=== PATIENT | male | born 1930 | race Caucasian/White ===

== ENCOUNTER → 2016-11-29 | Outpatient (CLI) | payer OTHER ==
[~2016-11-29] VITALS: Ht 177.8 cm; Wt 78.0 kg
[~2016-11-29] MED LIST: ACETAMINOPHEN-1 EAC1 PO; ALLOPURINOL 30300 M2 PO; ALTACE10 MG PO; ASPIR 8181 M1 PO; FOLIC ACID 40400 MCG PO; GLUCOSAMINE CH1 EAC2 PO; IRON325 PO; KEFLEX500 MG PO; MOBIC15 MG PO; PROTONIX40 M1 PO; TRAMADOL 50 MG50 MG PO; VITAMIN B122500 MCG PO
--- NOTE | ~2016-11-29 | P ---
[facility] [place] [address] PROCEDURE REPORT Name: TAYLOR ROSE Room #: REG CHINEDU Jarvis#: [id number] Admission: 11/29/16 Attend Phys: Gaston Nickerson Discharge: Date of : [birth year] Report #: [id number] THIS REPORT FOR: //name// CC: Gaston Justin DO DATE OF SERVICE: 11/29/2016 PROCEDURE PERFORMED: Flexible sigmoidoscopy. HISTORY OF PRESENT ILLNESS: The patient is an 86-year-old male with a previous history of GI bleed in February 2015, was hospitalized, bleeding scans at that time were negative, endoscopy showed diverticulosis. The patient has had a previous history of prostate cancer and radiation therapy. Upper endoscopy at that time showed a hiatal hernia and a small erosion. He denies any obvious bright red blood per rectum or melena at this time. He does complain of generalized fatigue. Lab from 11/06/2016, showed a hemoglobin of 12.4, ferritin level was 200, iron level was 56, which was low. Plan is for flexible sigmoidoscopy today. PROCEDURE: The risks and benefits of the procedure were explained to the patient, those risks including, but not limited to bleeding, perforation, and the risk of sedation. He understood these risks and gave informed consent. Sedation was given using propofol per anesthesia. Next, a digital rectal exam was initially performed, which was normal. Next, using a standard QikServeinon colonoscope, the scope was placed in the patient's anus and advanced under direct vision into the descending colon, at which point a large amount of stool was identified. There was no evidence of bleeding throughout the exam today. The prep was fair in most areas. Multiple washings and aspirations were performed. Multiple diverticula were noted in the sigmoid colon, no evidence of bleeding. The rectal mucosa was normal. There was no evidence of radiation proctitis. On retroflexion, small nonbleeding internal hemorrhoids were noted. The scope was then withdrawn and the procedure terminated. The patient tolerated the procedure well. IMPRESSION: 1. Sigmoid diverticulosis. 2. Internal hemorrhoids. 3. Otherwise, normal flexible sigmoidoscopy. No evidence of bleeding. RECOMMENDATIONS: We will repeat CBC today and monitor hemoglobin. If the patient's hemoglobin is trending down, may consider Hemoccult testing of stools. [address] [address] PROCEDURE REPORT Name: TAYLOR ROSE Room #: REG CHINEDU Jarvis#: [id number] Admission: 11/29/16 Attend Phys: Gaston Nickerson Discharge: Date of : 05/[birth year] Report #: [id number] Thank you for allowing me to participate in his care. By: 0924 0939 Gaston Milton MD /nt
[2016-11-29 10:06] LABS: HEMATOCRIT 37.7 % (42.0-52.0); HEMOGLOBIN 12.4 gm/dL (14.0-18.0); MCHC 32.9 g/dL (28.0-37.0); MCV 94.3 fL (80.0-100.0); RDW 15.3 % (10.5-14.5); WBC 6.1 thou/uL (4.0-11.0)
== END | disposition home or self-care (01) ==
LOC: GI 11-22 08:36
PROVIDERS: Specialist
DX: K57.30 Diverticulosis of large intestine without perforation or abscess without bleeding (principal); K64.8 Other hemorrhoids; Z87.891 Personal history of nicotine dependence; D64.9 Anemia, unspecified; I10 Essential (primary) hypertension; Z85.46 Personal history of malignant neoplasm of prostate
CPT/HCPCS: 62110

== ENCOUNTER → 2017-02-18 | Outpatient (CLI) | payer OTHER ==
[~2017-02-18] MED LIST changes: +AUGMENTIN 875-1 EACH PO; +DOXYCYCLINE 10100 MG PO; +FOSAMAX 70 MG T70 MG PO; +LEVAQUIN 750 M750 MG PO; +MUCINEX DM ER1 EAC1 PO; +OXYBUTYNIN 5 MG5 M2 PO; +PANTOPRAZOLE SO40 M1 PO; +PREDNISONE 20 M20 M1 PO; +TURMERIC500 M2 PO; +VENTOLIN HFA 1818 GM INH
== END ==
LOC: CAT 08:37
DX: K57.30 Diverticulosis of large intestine without perforation or abscess without bleeding (principal); D73.89 Other diseases of spleen; J98.4 Other disorders of lung; I70.0 Atherosclerosis of aorta; M25.78 Osteophyte, vertebrae; M47.896 Other spondylosis, lumbar region; Z98.890 Other specified postprocedural states

== ENCOUNTER 2017-02-20 23:30 | Inpatient (IN) | payer OTHER ==
[~2017-02-20] VITALS: Ht 177.8 cm; Wt 69.4 kg
--- NOTE | ~2017-02-20 | EKG ---
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 : 1930 Requested By: Rosa Elena Ware Order Number: [id number] MD: Ridge Huggins Measurements Intervals [place] Rate: 66 P: 26 WI: 144 QRS: -58 QRSD: 108 T: 81 QT: 371 QTc: 389 Interpretive Statements Sinus rhythm Ventricular bigeminy Left anterior fascicular block Nonspecific T abnrm, anterolateral leads Compared to ECG 01/26/2017 12:09:18 Ventricular premature complex(es) now present Left anterior fascicular block now present Left bundle-branch block no longer present Electronically Signed On 02-21-2017 8:12:55 INPATIENT PHARMACIST by Ridge Huggins [email or web address] <ELECTRONICALLY SIGNED> By: Ridge Huggins MD 02/21/17 0812 0003 0003 Ridge Huggins MD /EPI
--- NOTE | ~2017-02-20 | HC ---
[facility] [place] [address] CONSULTATION Name: TAYLOR ROSE Room #: 218-P [facility] IN ..#: [id number] Admission: 02/21/17 Attend Phys: Antolin Hopson MD Discharge: 02/25/17 Date of : [birth year] Report #: [id number] THIS REPORT FOR: //name// CC: Antolin Hopson DATE OF SERVICE: 02/24/2017 HISTORY OF PRESENT ILLNESS: The patient is an 86-year-old white male who was admitted with complaining weakness for the past month, complains of stiffness of his hands with generalized pain of his knees and arms. He is noted to have an anemia of 10.4. He did have elevation of his sedimentation rate. He has been diagnosed with polymyalgia rheumatica and has been started on corticosteroids with nice improvement in his symptomatology. We are seeing him in rehabilitation medicine consultation. PAST MEDICAL HISTORY: Includes prior lower GI bleed. He has had a right knee replacement, left hip replacement, diverticulitis, hypertension, gout, prostate cancer with radiation, GI bleed, iron deficiency anemia, kidney stone procedure. MEDICATIONS: Please see the full medication listing. ALLERGIES: No known drug allergies. HABITS: Former tobacco abuse, quit greater than a year ago. No history of alcohol abuse per se. REVIEW OF SYSTEMS: Did not offer any current complaints of chest pain, shortness of breath or abdominal discomfort. PHYSICAL EXAMINATION: GENERAL: An 86-year-old white male, pleasant, in no obvious distress. HEENT: Appeared to be benign. NEUROLOGIC: Cranial nerves are grossly intact. Facies are symmetric. Notes that his hands are stiff and he does have considerable degenerative changes of his hands, but he feels he is moving them better than he could. He can come to almost a full fist formation. No actual joint synovitis or erythema was noted. His lower extremities, he has the old knee incision. No focal calf swelling. Tone appeared to be intact. I would grade the strength of the lower extremities at a 4, upper extremity is probably grade 4-. Since starting the steroids, he has improved from max assist to now mod assist with sit to stand and was able to ambulate up to 300 feet with a front-wheeled walker with min assist. ASSESSMENT: An 86-year-old white male with the following problems: 1. Polymyalgia rheumatica. 2. Generalized weakness and debilitation. 3. Anemia. [address] [address] CONSULTATION Name: TAYLOR ROSE Room #: 218-P DIS IN M.R.#: [id number] Admission: 02/21/17 Attend Phys: Antolin Hopson MD Discharge: 02/25/17 Date of : [birth year] Report #: [id number] 4. Past history of gout. 5. Degenerative arthritis. PLAN: Occupational therapy is to evaluate. Physical therapy is involved as noted above. Insurance is being checked regarding rehab therapy options. We will be glad to follow along with you. <ELECTRONICALLY SIGNED> By: Salvador Cruz MD 02/28/17 1306 1143 1517 Salvador Cruz MD /[facility]
[~2017-02-20 23:30] MED LIST changes: -AUGMENTIN 875-1 EACH PO; -DOXYCYCLINE 10100 MG PO; -FOSAMAX 70 MG T70 MG PO; -LEVAQUIN 750 M750 MG PO; -MUCINEX DM ER1 EAC1 PO; -OXYBUTYNIN 5 MG5 M2 PO; -PANTOPRAZOLE SO40 M1 PO; -PREDNISONE 20 M20 M1 PO; -VENTOLIN HFA 1818 GM INH
[2017-02-20 23:38] VITALS: BP 123/44
[2017-02-21] VITALS (7 sets, daily range): BP systolic 122–144; BP diastolic 58–78
[2017-02-21 00:16] LABS: ANION GAP 7 mmol/L (7-16); BUN 16 mg/dL (7-18); CHLORIDE 98 mmol/L (98-107); CO2 27 mmol/L (21-32); CREATININE 0.9 mg/dL (0.7-1.3); GLUCOSE 129 mg/dL (74-106); POTASSIUM 4.3 mmol/L (3.5-5.1); SODIUM 132 mmol/L (136-145)
[2017-02-21 00:18] LABS: ABSOLUTE NEUTROPHILS 7.1 thou/uL (1.4-8.2); BASOPHILS 0.4 % (0.0-2.0); EOSINOPHILS 0.3 % (0.0-3.0); HEMATOCRIT 31.2 % (42.0-52.0); HEMOGLOBIN 10.4 gm/dL (14.0-18.0); LYMPHOCYTES 10.6 % (24.0-44.0); MCH 30.5 pg (26.0-34.0); MCHC 33.4 g/dL (28.0-37.0); MCV 91.1 fL (80.0-100.0); MONOCYTES 9.9 % (1.0-8.0); PLATELET COUNT 369 thou/uL (150-400); POLYS 78.8 % (36.0-66.0); RBC 3.42 mil/uL (4.50-6.00); RDW 14.7 % (10.5-14.5)
[2017-02-21 00:24] LABS: TROPONIN-I < 0.04 ng/mL (<0.06)
[2017-02-21 05:54] LABS: URINE BILIRUBIN NEGATIVE (Negative); URINE BLOOD NEGATIVE (Negative); URINE CLARITY CLEAR; URINE COLOR YELLOW; URINE GLUCOSE-RANDOM* NEGATIVE (Negative); URINE KETONES NEGATIVE (Negative); URINE LEUKOCYTES NEGATIVE (Negative); URINE NITRITE NEGATIVE (Negative); URINE PROTEIN (DIPSTICK) NEGATIVE (Negative)
[2017-02-21 06:10] LABS: ALBUMIN 2.2 g/dL (3.4-5.0); DIRECT BILIRUBIN 0.3 mg/dL (<0.1-0.3); TOTAL BILIRUBIN 0.7 mg/dL (<0.1-1.0); TOTAL PROTEIN 6.4 g/dL (6.4-8.2)
[2017-02-21 16:10] LABS: HAV IgM AB (ANTI-HAV IgM) Negative (Negative); HEPATITIS B SURFACE AG Negative (Negative); HEPATITIS C VIRUS AB <0.1 (0.0-0.9)
[2017-02-22 03:19] VITALS: BP 138/82
[2017-02-22 07:19] VITALS: BP 146/83
[2017-02-22 07:20] LABS: ABSOLUTE NEUTROPHILS 5.2 thou/uL (1.4-8.2); BASOPHILS 0.4 % (0.0-2.0); EOSINOPHILS 0.7 % (0.0-3.0); HEMATOCRIT 32.2 % (42.0-52.0); HEMOGLOBIN 10.7 gm/dL (14.0-18.0); LYMPHOCYTES 15.6 % (24.0-44.0); MCH 30.5 pg (26.0-34.0); MCHC 33.4 g/dL (28.0-37.0); MCV 91.4 fL (80.0-100.0); MONOCYTES 10.9 % (1.0-8.0); PLATELET COUNT 357 thou/uL (150-400); POLYS 72.4 % (36.0-66.0); RBC 3.52 mil/uL (4.50-6.00); RDW 14.8 % (10.5-14.5); WBC 7.2 thou/uL (4.0-11.0)
[2017-02-22 07:28] LABS: CALCIUM 9.3 mg/dL (8.5-10.1); CREATININE 0.8 mg/dL (0.7-1.3); POTASSIUM 3.9 mmol/L (3.5-5.1)
[2017-02-22 11:37] VITALS: BP 133/73
[2017-02-22 16:03] VITALS: BP 126/59
[2017-02-22 19:49] VITALS: BP 114/71
[2017-02-23 04:52] VITALS: BP 136/76
[2017-02-23 05:14] LABS: ABSOLUTE NEUTROPHILS 5.7 thou/uL (1.4-8.2); BASOPHILS 0.5 % (0.0-2.0); EOSINOPHILS 0.8 % (0.0-3.0); HEMATOCRIT 34.5 % (42.0-52.0); HEMOGLOBIN 11.8 gm/dL (14.0-18.0); LYMPHOCYTES 18.8 % (24.0-44.0); MCH 31.2 pg (26.0-34.0); MCHC 34.1 g/dL (28.0-37.0); MCV 91.3 fL (80.0-100.0); MONOCYTES 8.5 % (1.0-8.0); PLATELET COUNT 427 thou/uL (150-400); POLYS 71.4 % (36.0-66.0); RBC 3.78 mil/uL (4.50-6.00)
[2017-02-23 05:31] LABS: ALBUMIN 2.3 g/dL (3.4-5.0); CALCIUM 9.5 mg/dL (8.5-10.1); CREATININE 0.9 mg/dL (0.7-1.3); POTASSIUM 4.1 mmol/L (3.5-5.1); TOTAL BILIRUBIN 0.6 mg/dL (<0.1-1.0); TOTAL PROTEIN 6.6 g/dL (6.4-8.2)
[2017-02-23 07:25] VITALS: BP 146/83
[2017-02-23 19:00] VITALS: BP 130/75
[2017-02-24 03:22] LABS: ABSOLUTE NEUTROPHILS 6.2 thou/uL (1.4-8.2); BASOPHILS 0.2 % (0.0-2.0); HEMATOCRIT 32.5 % (42.0-52.0); HEMOGLOBIN 10.8 gm/dL (14.0-18.0); LYMPHOCYTES 11.5 % (24.0-44.0); MCH 30.1 pg (26.0-34.0); MCHC 33.2 g/dL (28.0-37.0); MCV 90.8 fL (80.0-100.0); MONOCYTES 5.6 % (1.0-8.0); PLATELET COUNT 390 thou/uL (150-400); POLYS 82.7 % (36.0-66.0); RBC 3.58 mil/uL (4.50-6.00); RDW 14.7 % (10.5-14.5); WBC 7.5 thou/uL (4.0-11.0)
[2017-02-24 03:32] VITALS: BP 129/80
[2017-02-24 08:00] VITALS: BP 155/74
[2017-02-24 12:00] VITALS: BP 120/54
[2017-02-24 16:00] VITALS: BP 138/67
[2017-02-24 21:14] VITALS: BP 133/81
[2017-02-25 05:27] VITALS: BP 133/51
[2017-02-25] MEDS ORDERED: PANTOPRAZOLE SO40 M1 PO (07:06)
[2017-02-25] MEDS ORDERED: PREDNISONE 20 M20 M1 PO (07:07)
[2017-02-25 08:02] VITALS: BP 144/83
[2017-02-25 12:07] VITALS: BP 132/68
== END 2017-02-25 16:35 | DRG 545 ==
LOC: ER 23:30 → EROBS 02-21 00:52 → 2N 02-21 00:52 → ER 02-21 00:52 → 2N 02-21 11:30
PROVIDERS: Emergency Medicine; Internal Medicine Endocrinology, Diabetes & Metabolism
DX: M35.3 Polymyalgia rheumatica (principal); E43 Unspecified severe protein-calorie malnutrition; K92.2 Gastrointestinal hemorrhage, unspecified; Z96.651 Presence of right artificial knee joint; I10 Essential (primary) hypertension; M10.9 Gout, unspecified; Z96.642 Presence of left artificial hip joint; D64.9 Anemia, unspecified; K57.90 Diverticulosis of intestine, part unspecified, without perforation or abscess without bleeding; G89.29 Other chronic pain; R74.0 Nonspecific elevation of levels of transaminase and lactic acid dehydrogenase [LDH]; K76.0 Fatty (change of) liver, not elsewhere classified; K80.20 Calculus of gallbladder without cholecystitis without obstruction; Z87.891 Personal history of nicotine dependence; Z87.442 Personal history of urinary calculi; Z85.46 Personal history of malignant neoplasm of prostate; Z79.899 Other long term (current) drug therapy; Z90.49 Acquired absence of other specified parts of digestive tract; Z68.22 Body mass index [BMI] 22.0-22.9, adult; Z98.49 Cataract extraction status, unspecified eye
CPT/HCPCS: 10081

== ENCOUNTER → 2017-04-11 | Outpatient (CLI) | payer OTHER ==
[~2017-04-11] MED LIST changes: +AUGMENTIN 875-1 EACH PO; +DOXYCYCLINE 10100 MG PO; +FOSAMAX 70 MG T70 MG PO; +LEVAQUIN 750 M750 MG PO; +MUCINEX DM ER1 EAC1 PO; +OXYBUTYNIN 5 MG5 M2 PO; +PANTOPRAZOLE SO40 M1 PO; +PREDNISONE 20 M20 M1 PO; +VENTOLIN HFA 1818 GM INH
== END ==
LOC: NUC 11:04
DX: M85.88 Other specified disorders of bone density and structure, other site (principal)

== ENCOUNTER 2017-07-16 13:15 | Inpatient (IN) | payer OTHER ==
[~2017-07-16] VITALS: Ht 177.8 cm; Wt 73.0 kg
--- NOTE | ~2017-07-16 | EKG ---
[place] [address] [address] 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 : 1930 Requested By: Rosa Elena Ware Order Number: [id number] MD: Manjit Manning Measurements Intervals [place] Rate: 85 P: 21 PA: 150 QRS: -49 QRSD: 108 T: 68 QT: 341 QTc: 406 Interpretive Statements Sinus rhythm Atrial premature complex Left anterior fascicular block Abnormal R-wave progression, late transition Probable left ventricular hypertrophy Compared to ECG 02/21/2017 00:03:17 Atrial premature complex(es) now present Ventricular premature complex(es) no longer present Electronically Signed On 07-16-2017 17:11:08 CDT by Manjit Manning [email or web address] <ELECTRONICALLY SIGNED> By: Manjit Manning MD, [facility] 07/16/17 1711 1444 1444 Manjit Manning MD, [facility] /EPI
[~2017-07-16 13:15] MED LIST changes: -AUGMENTIN 875-1 EACH PO; -DOXYCYCLINE 10100 MG PO; -FOSAMAX 70 MG T70 MG PO; -LEVAQUIN 750 M750 MG PO; -MUCINEX DM ER1 EAC1 PO; -OXYBUTYNIN 5 MG5 M2 PO; -VENTOLIN HFA 1818 GM INH
[2017-07-16 13:28] VITALS: BP 144/69
[2017-07-16 13:51] LABS: ABSOLUTE NEUTROPHILS 11.2 thou/uL (1.4-8.2); BASOPHILS 0.3 % (0.0-2.0); EOSINOPHILS 0.1 % (0.0-3.0); HEMATOCRIT 42.8 % (42.0-52.0); LYMPHOCYTES 13.3 % (24.0-44.0); MCH 31.3 pg (26.0-34.0); MCHC 32.6 g/dL (28.0-37.0); MCV 95.9 fL (80.0-100.0); PLATELET COUNT 211 thou/uL (150-400); POLYS 79.3 % (36.0-66.0); RBC 4.46 mil/uL (4.50-6.00); RDW 15.5 % (10.5-14.5); WBC 14.1 thou/uL (4.0-11.0)
[2017-07-16 13:56] LABS: CALCIUM 9.2 mg/dL (8.5-10.1); POTASSIUM 3.9 mmol/L (3.5-5.1)
[2017-07-16 14:02] LABS: ALBUMIN 3.3 g/dL (3.4-5.0); DIRECT BILIRUBIN 0.3 mg/dL (<0.1-0.3); TOTAL PROTEIN 6.7 g/dL (6.4-8.2)
[2017-07-16 14:54] LABS: BE(vivo) 4.4 mmol/L (-2 to +3); HCO3 28.8 mmol/L (22.0-26.0); PCO2 41.9 mmHg (35.0-45.0); PO2 71.2 mmHg (80.0-100.0); pH 7.455 (7.360-7.450)
[2017-07-16] MEDS ORDERED: FOSAMAX 70 MG T70 MG PO (16:22)
[2017-07-16] MEDS ORDERED: OXYBUTYNIN 5 MG5 M2 PO (16:22)
[2017-07-16] MEDS ORDERED: DOXYCYCLINE 10100 MG PO (16:23)
[2017-07-16] MEDS ORDERED: VENTOLIN HFA 1818 GM INH (16:23)
[2017-07-16 16:25] LABS: URINE BILIRUBIN NEGATIVE (Negative); URINE BLOOD NEGATIVE (Negative); URINE CLARITY CLEAR; URINE COLOR YELLOW; URINE GLUCOSE-RANDOM* NEGATIVE (Negative); URINE KETONES TRACE (Negative); URINE LEUKOCYTES NEGATIVE (Negative); URINE NITRITE NEGATIVE (Negative); URINE PROTEIN (DIPSTICK) TRACE (Negative); URINE UROBILINOGEN 0.2 E.U./dl (0.2-1.0)
[2017-07-16 17:01] VITALS: BP 116/56
[2017-07-16 19:47] VITALS: BP 111/55
[2017-07-16 23:48] VITALS: BP 137/89
[2017-07-17 03:00] VITALS: BP 116/57
[2017-07-17 07:42] LABS: HEMATOCRIT 38.5 % (42.0-52.0); HEMOGLOBIN 13.1 gm/dL (14.0-18.0); MCH 32.4 pg (26.0-34.0); MCHC 33.9 g/dL (28.0-37.0); MCV 95.4 fL (80.0-100.0); RBC 4.04 mil/uL (4.50-6.00); RDW 15.3 % (10.5-14.5); WBC 9.5 thou/uL (4.0-11.0)
[2017-07-17 07:49] LABS: CALCIUM 8.8 mg/dL (8.5-10.1); POTASSIUM 4.1 mmol/L (3.5-5.1)
[2017-07-17 08:00] VITALS: BP 116/57
[2017-07-17 12:20] VITALS: BP 120/60
[2017-07-17 16:15] VITALS: BP 114/68
[2017-07-17 19:15] VITALS: BP 103/55
[2017-07-18] VITALS (7 sets, daily range): BP systolic 96–132; BP diastolic 49–73
[2017-07-19 04:00] VITALS: BP 139/68
[2017-07-19 08:05] VITALS: BP 187/87
[2017-07-19 08:39] VITALS: BP 124/73
[2017-07-19 12:00] VITALS: BP 124/60
[2017-07-19 20:17] VITALS: BP 142/67
[2017-07-20 04:13] VITALS: BP 143/78
[2017-07-20] MEDS ORDERED: MUCINEX DM ER1 EAC1 PO (08:13)
[2017-07-20] MEDS ORDERED: PREDNISONE 20 M20 M1 PO (08:14)
[2017-07-20] MEDS ORDERED: AUGMENTIN 875-1 EACH PO (08:14)
[2017-07-20 08:31] VITALS: BP 163/90
[2017-07-20 11:52] VITALS: BP 129/74
[2017-07-20 15:03] VITALS: BP 128/62
[2017-07-20 18:31] VITALS: BP 128/62
== END 2017-07-20 18:37 | disposition home health service (06) | DRG 177 ==
LOC: ER 13:15 → 3W 14:17 → EROBS 14:17 → 3W 17:31
PROVIDERS: Emergency Medicine; Family Medicine
DX: J69.0 Pneumonitis due to inhalation of food and vomit (principal); J96.01 Acute respiratory failure with hypoxia; N17.9 Acute kidney failure, unspecified; Z96.651 Presence of right artificial knee joint; Z96.642 Presence of left artificial hip joint; I10 Essential (primary) hypertension; M10.9 Gout, unspecified; M17.12 Unilateral primary osteoarthritis, left knee; R13.10 Dysphagia, unspecified; K59.00 Constipation, unspecified; N40.1 Benign prostatic hyperplasia with lower urinary tract symptoms; R33.8 Other retention of urine; D50.9 Iron deficiency anemia, unspecified; Z98.49 Cataract extraction status, unspecified eye; Z87.442 Personal history of urinary calculi; Z85.46 Personal history of malignant neoplasm of prostate; Z87.891 Personal history of nicotine dependence
CPT/HCPCS: 10779

== ENCOUNTER 2017-08-18 15:51 | Emergency (ER) | payer OTHER ==
[~2017-08-18] VITALS: Ht 180.3 cm; Wt 77.1 kg
--- NOTE | ~2017-08-18 | EKG ---
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 : 1930 Requested By: Ebenezer Diaz Order Number: [id number] MD: Ridge Huggins Measurements Intervals [place] Rate: 76 P: -17 SD: 156 QRS: -41 QRSD: 100 T: 28 QT: 359 QTc: 404 Interpretive Statements Sinus rhythm Left anterior fascicular block Abnormal R-wave progression, late transition Left ventricular hypertrophy Compared to ECG 07/16/2017 14:44:39 Atrial premature complex(es) no longer present Electronically Signed On 08-18-2017 22:05:26 CDT by Ridge Huggins [email or web address] <ELECTRONICALLY SIGNED> By: Ridge Huggins MD 08/18/17 2205 1651 1651 Ridge Huggins MD /EPI
[~2017-08-18 15:51] MED LIST changes: +AUGMENTIN 875-1 EACH PO; +DOXYCYCLINE 10100 MG PO; +FOSAMAX 70 MG T70 MG PO; +MUCINEX DM ER1 EAC1 PO; +OXYBUTYNIN 5 MG5 M2 PO; +VENTOLIN HFA 1818 GM INH
[2017-08-18 16:14] LABS: HEMATOCRIT 42.4 % (42.0-52.0); HEMOGLOBIN 14.3 gm/dL (14.0-18.0); MCH 32.2 pg (26.0-34.0); MCHC 33.8 g/dL (28.0-37.0); MCV 95.4 fL (80.0-100.0); PLATELET COUNT 166 thou/uL (150-400); RBC 4.44 mil/uL (4.50-6.00); RDW 15.6 % (10.5-14.5); WBC 11.1 thou/uL (4.0-11.0)
[2017-08-18 16:22] LABS: ANION GAP 9 mmol/L (7-16); BUN 29 mg/dL (7-18); CALCIUM 9.3 mg/dL (8.5-10.1); CHLORIDE 102 mmol/L (98-107); CO2 26 mmol/L (21-32); CREATININE 1.3 mg/dL (0.7-1.3); GLUCOSE 240 mg/dL (74-106); POTASSIUM 4.5 mmol/L (3.5-5.1); SODIUM 137 mmol/L (136-145)
[2017-08-18 16:31] LABS: TROPONIN-I <0.06 ng/mL (<0.06)
[2017-08-18 18:20] LABS: URINE BILIRUBIN NEGATIVE (Negative); URINE BLOOD NEGATIVE (Negative); URINE CLARITY CLEAR; URINE COLOR YELLOW; URINE GLUCOSE-RANDOM* NEGATIVE (Negative); URINE KETONES NEGATIVE (Negative); URINE LEUKOCYTES-REFLEX NEGATIVE (Negative); URINE NITRITE-REFLEX NEGATIVE (Negative); URINE PROTEIN (DIPSTICK) NEGATIVE (Negative); URINE UROBILINOGEN 0.2 E.U./dl (0.2-1.0)
[2017-08-18] MEDS ORDERED: LEVAQUIN 750 M750 MG PO (18:52)
== END 2017-08-18 19:23 | disposition home or self-care (01) ==
LOC: ER 15:51
PROVIDERS: Emergency Medicine
DX: J18.9 Pneumonia, unspecified organism (principal); I10 Essential (primary) hypertension; M10.9 Gout, unspecified; M17.12 Unilateral primary osteoarthritis, left knee; Z85.46 Personal history of malignant neoplasm of prostate; Z87.891 Personal history of nicotine dependence